=== PATIENT | female | born 1950 | race Caucasian/White ===

== ENCOUNTER 2020-05-28 16:13 | Emergency (ER) | payer OTHER, MEDICAID ==
[~2020-05-28] VITALS: Ht 162.6 cm; Wt 50.0 kg
[2020-05-28 16:15] VITALS: BP 110/72
[2020-05-28] MEDS ORDERED: ACETAMINOPHEN 500MG TABLET PO ONE (16:45)
[2020-05-28] MEDS ORDERED: ACET-2708 MT (17:02)
== END 2020-05-28 18:44 | disposition home or self-care (01) ==
LOC: ER 16:13
DX: M79.671 Pain in right foot (principal); J45.909 Unspecified asthma, uncomplicated; Z85.9 Personal history of malignant neoplasm, unspecified; Z88.2 Allergy status to sulfonamides; Z88.8 Allergy status to other drugs, medicaments and biological substances; Z93.3 Colostomy status
CPT/HCPCS: 73630; 99283